=== PATIENT | male | born 1975 | race Caucasian/White ===

== ENCOUNTER 2022-06-15 07:30 | Outpatient (CLI) | payer MEDICARE, MEDICAID, SELFPAY ==
[2022-06-15 12:12] LABS: Cholesterol* 199 mg/dL (90-199); Glucose* 96 mg/dL (60-115); HDL Cholesterol* 53 mg/dL (>=40); LDL Cholesterol Calculated 111 mg/dL (<100); Triglycerides* 174 mg/dL (40-149)
== END 2022-06-15 07:31 | disposition home or self-care (01) ==
LOC: NFLDREF 07:30
PROVIDERS: PCP Family Medicine; Visit Provider Family Medicine
DX: Z13.1 Encounter for screening for diabetes mellitus (principal); Z13.6 Encounter for screening for cardiovascular disorders
CPT/HCPCS: 80061; 82947

== ENCOUNTER 2022-08-04 09:09 | Outpatient (CLI) | payer MEDICARE, MEDICAID, SELFPAY | END 2022-08-04 09:10 | disposition home or self-care (01) | LOC: OP CLINIC 09:10 | PROVIDERS: PCP Family Medicine; Visit Provider Internal Medicine | DX: Z12.11 Encounter for screening for malignant neoplasm of colon (principal); K63.5 Polyp of colon; K57.30 Diverticulosis of large intestine without perforation or abscess without bleeding; Z80.0 Family history of malignant neoplasm of digestive organs | CPT/HCPCS: 45380; 88305; J2250; J3010 ==

== ENCOUNTER 2023-05-21 10:07 | Outpatient (CLI) | payer MEDICAID, SELFPAY | END 2023-05-21 10:08 | disposition home or self-care (01) | LOC: NFLDREF 05-23 10:39 | PROVIDERS: PCP Family Medicine; Referring Provider Family Medicine; Visit Provider Internal Medicine | DX: N20.0 Calculus of kidney (principal) | CPT/HCPCS: 87086 ==

== ENCOUNTER 2023-05-22 10:44 | Outpatient (CLI) | payer OTHER, SELFPAY ==
--- NOTE | 2023-05-22 11:00 | CRLHL7_ITS ---
For Patients: As a result of the Century Cures Act, medical imaging exams and procedure reports are released immediately into your electronic medical record. You may view this report before your referring provider. If you have questions, please contact your health care provider. INDICATION: Calculus of kidney. Flank pain.. TECHNIQUE: CT abdomen and pelvis without contrast. COMPARISON: None. FINDINGS: Lower chest: Unremarkable. Liver: Normal in size and attenuation. No suspicious masses. Gallbladder and bile ducts: No stones or inflammation. No biliary dilatation. Pancreas: Unremarkable. No mass or inflammation. Spleen: Normal in size. No masses. Adrenal glands: Normal in size. No nodules. Kidneys: Moderate/severe right hydroureteronephrosis with 5 x 9 millimeter stone (versus 2 adjacent 4-5 millimeter stones) at the right UVJ. Additional bilateral punctate nonobstructing renal calculi. 1.5 centimeter water density cyst arising from the posterior aspect of the midleft kidney. Indeterminate density 3.5 centimeter lesion arising from the mid anterior superior aspect of the right kidney (axial series 2, image 44). GI tract: Unremarkable. Normal in caliber. No sign of mass or inflammation. Normal appendix. Vasculature: Abdominal aorta is normal in caliber. Lymph nodes: No lymphadenopathy. Peritoneum/Abdominal Wall: Unremarkable. No sign of mass or infiltration. No free air or significant free fluid. Pelvis: Slightly enlarged and mildly heterogeneous prostate. Mild diffuse thickening of the urinary bladder wall, nonspecific. Bones: Unremarkable for age. IMPRESSION: 1. Moderate/severe right hydronephrosis with 5 x 9 millimeter stone (versus 2 adjacent 4-5 millimeter stones) at the right UVJ. 2. Additional punctate bilateral nonobstructing renal calculi. 3. Indeterminate density 3.5 centimeter left renal lesion. This may reflect a solid mass. Recommend further characterization with renal mass protocol CT or MRI. Please note that all CT scans at this facility use dose modulation, iterative reconstruction, and/or weight-based dosing when appropriate to reduce radiation dose to as low as reasonably achievable. Dictated by Adarsh Baker MD @ 05/23/2023 10:43:15 AM (Electronically Signed)
== END 2023-05-22 10:45 | disposition home or self-care (01) ==
PROVIDERS: PCP Internal Medicine; Visit Provider Internal Medicine
DX: N20.0 Calculus of kidney (principal)
CPT/HCPCS: 74176

== ENCOUNTER 2023-05-25 13:55 | Outpatient (CLI) | payer MEDICAID, SELFPAY | END 2023-05-25 13:56 | disposition home or self-care (01) | PROVIDERS: PCP Internal Medicine; Visit Provider Nurse Practitioner Family | DX: Z01.818 Encounter for other preprocedural examination (principal) | CPT/HCPCS: 80053; 85025 ==

== ENCOUNTER 2023-06-07 10:47 | Outpatient (CLI) | payer MEDICAID, SELFPAY ==
--- NOTE | 2023-06-07 11:00 | CRLHL7_ITS ---
For Patients: As a result of the Century Cures Act, medical imaging exams and procedure reports are released immediately into your electronic medical record. You may view this report before your referring provider. If you have questions, please contact your health care provider. CLINICAL HISTORY: Renal mass Comparison CT abdomen 05/22/2023 TECHNIQUE: Coronado scale and color Doppler images were acquired of the kidneys and urinary bladder. FINDINGS: The right kidney measures 10.3 cm in length and the left kidney measures 11.2cm in length. The renal cortex appears of normal thickness. Echogenic focus in the left kidney could represent a nonobstructing stone. There is a bilobed cyst in the left superior kidney measuring 2.5 x 1.6 x 1.4 centimeters. Small cyst within the right kidney. Moderate right hydronephrosis present. Presence ureteral stent in place. The right ureter appears mildly dilated. Urinary bladder unremarkable. Ureteral jets are present. Postvoid residual 91 mL. IMPRESSION: 1. Bilateral renal cysts. Mild to moderate right hydronephrosis is presence of ureteral stent. 2. Possible nonobstructing left renal calculus. Dictated by Noelle Crump MD @ 06/09/2023 8:36:35 PM (Electronically Signed)
== END 2023-06-07 10:48 | disposition home or self-care (01) ==
LOC: US 10:47
PROVIDERS: PCP Internal Medicine; Visit Provider Urology
DX: N28.89 Other specified disorders of kidney and ureter (principal); N28.1 Cyst of kidney, acquired
CPT/HCPCS: 76770

== ENCOUNTER 2023-07-16 12:32 | Outpatient (REF) | payer OTHER, SELFPAY ==
[2023-07-16 13:42] LABS: Chloride* 107 mmol/L (96-114); Sodium* 143 mmol/L (135-149)
[2023-07-16 13:43] LABS: Potassium* 3.9 mmol/L (3.6-5.1)
[2023-07-16 13:46] LABS: Anion Gap 8 mEq/L (7-15); Blood Urea Nitrogen* 14 mg/dL (7-30); Calcium* 9.3 mg/dL (8.4-10.6); Carbon Dioxide* 28 mmol/L (20-32); Uric Acid* 5.8 mg/dL (2.2-8.4)
== END 2023-07-16 12:33 | disposition home or self-care (01) ==
LOC: NPINS 12:32
PROVIDERS: PCP Internal Medicine; Visit Provider Urology
DX: N20.0 Calculus of kidney (principal)
CPT/HCPCS: 80051; 82310; 83970; 84520; 84550

== ENCOUNTER 2025-04-16 07:53 | Outpatient (CLI) | payer OTHER, SELFPAY ==
--- NOTE | 2025-04-16 08:15 | CRLHL7_ITS ---
For Patients: As a result of the Century Cures Act, medical imaging exams and procedure reports are released immediately into your electronic medical record. You may view this report before your referring provider. If you have questions, please contact your health care provider. INDICATION: Traumatic brain injury. Loss of consciousness. COMPARISON: 06/28/2016. TECHNIQUE: Multiplanar T1, T2, FLAIR and diffusion-weighted imaging. Post gadolinium T1 weighted sequences. Gadolinium 20 cc IV. FINDINGS: Normal brain parenchymal morphology and signal intensity. No intracranial hemorrhage. No abnormal ventricular dilatation. Intracranial vascular flow voids are preserved. No mass effect or midline shift. No restricted diffusion to suggest acute ischemia. No susceptibility artifact of remote hemorrhage. No abnormal enhancement or enhancing lesions within the brain parenchyma. Bilateral orbits are unremarkable. Normal appearing sella. Visualized paranasal sinuses and mastoid air cells are unremarkable. IMPRESSION: 1. No acute intracranial abnormality. 2. Normal brain parenchymal morphology and signal intensity. 3. No acute or chronic intracranial hemorrhage 4. No abnormal enhancement or enhancing lesions. Dictated by Feliberto Valenzuela MD @ 04/16/2025 1:17:18 PM (Electronically Signed)
--- NOTE | 2025-04-16 09:15 | CRLHL7_ITS ---
For Patients: As a result of the Century Cures Act, medical imaging exams and procedure reports are released immediately into your electronic medical record. You may view this report before your referring provider. If you have questions, please contact your health care provider. INDICATION: Neck pain. COMPARISON: None. TECHNIQUE: Sagittal T1, T2, and STIR sequences. Axial T2/gradient sequences. FINDINGS: Normal vertebral body facet alignment. No fractures. No vertebral body loss of height. No spondylolisthesis. No ligamentous injury. Normal marrow signal. No suspicious osseous lesions. Normal cord signal. No intradural mass or lesion. C1-2: No spinal canal narrowing. C2-3: Disc degeneration posterior disc bulge. No spinal canal neural foraminal narrowing. C3-4: Disk degeneration. Posterior disc bulge or disc osteophyte complex. No narrowing of the spinal canal. Mild narrowing of the right neural foramen. No narrowing of the left neural foramen. C4-5: Disc degeneration and central disc osteophyte complex measures approximately 3 mm in short axis. Mild narrowing of spinal canal. Moderate narrowing of bilateral foramina. C5-6: Disc degeneration broad-based disc osteophyte complex. No narrowing of the spinal canal. Mild to moderate narrowing of bilateral foramina. C6-7: No spinal canal or neural foraminal narrowing. C7-T1: No spinal canal or neural foraminal narrowing. No spinal canal or neural foraminal narrowing in the visualized upper thoracic spine. IMPRESSION: 1. Normal alignment. No fractures 2. Normal cord signal 3. At C3-4, mild narrowing of the right neural foramen 4. At C4-5, central disc osteophyte complex. Mild narrowing of the spinal canal. Moderate narrowing of the bilateral neural foramina 5. At C5-6, [id number] narrowing of the bilateral neural foramina Dictated by Feliberto Valenzuela MD @ 04/16/2025 1:25:07 PM (Electronically Signed)
== END 2025-04-16 07:54 | disposition home or self-care (01) ==
LOC: MRI 07:54
PROVIDERS: PCP Internal Medicine; Visit Provider Internal Medicine
DX: M50.21 Other cervical disc displacement, high cervical region (principal); M50.221 Other cervical disc displacement at C4-C5 level; M50.222 Other cervical disc displacement at C5-C6 level; S06.9XAA Unspecified intracranial injury with loss of consciousness status unknown, initial encounter
CPT/HCPCS: 70553; 72141; A9575

== ENCOUNTER 2025-06-16 08:03 | Outpatient (CLI) | payer MEDICARE, SELFPAY | END 2025-06-16 08:04 | disposition home or self-care (01) | LOC: NFLDREF 06-19 03:02 | PROVIDERS: PCP Internal Medicine; Referring Provider Internal Medicine; Visit Provider Internal Medicine | DX: E23.7 Disorder of pituitary gland, unspecified (principal) | CPT/HCPCS: 82533 ==